=== PATIENT | female | born 1995 | race Caucasian/White ===

== ENCOUNTER 2021-08-02 16:23 | Emergency (ER) | payer OTHER ==
[~2021-08-02] VITALS: Ht 177.8 cm; Wt 109.0 kg
[2021-08-02] MEDS ORDERED: ACETAMINOPHEN 325MG TABLET PO ONE (17:00)
[2021-08-02] MEDS ORDERED: FLUORESCEIN SODIUM 1MG/STRIP LEFTEYE ONE (17:00)
[2021-08-02] MEDS ORDERED: TETRACAINE 0.5% OPHTH DROPS 4ML LEFTEYE ONE (17:00)
[2021-08-02] MEDS ORDERED: TOPUD MT (18:14)
[2021-08-02] MEDS ORDERED: PRED5DRO22 RIGHTEYE (18:14)
[2021-08-02] MEDS ORDERED: CIPR5DRO RIGHTEYE (18:14)
[2021-08-02 18:25] VITALS: BP 129/84
== END 2021-08-02 18:26 | disposition home or self-care (01) ==
LOC: ER 16:48
DX: S05.01XA Injury of conjunctiva and corneal abrasion without foreign body, right eye, initial encounter (principal); S05.8X1A Other injuries of right eye and orbit, initial encounter; X58.XXXA Exposure to other specified factors, initial encounter; Y93.9 Activity, unspecified; Y92.9 Unspecified place or not applicable
CPT/HCPCS: 99284